=== PATIENT | male | born 1995 | race African-American/Black ===

== ENCOUNTER 2020-02-22 08:57 | Emergency (ER) | payer OTHER ==
[~2020-02-22] VITALS: Ht 177.8 cm; Wt 72.6 kg
[2020-02-22 09:16] LABS: ABSOLUTE BASOPHILS 0.1 thou/uL (0.0-0.2); ABSOLUTE EOSINOPHILS 0.1 thou/uL (0.0-0.7); ABSOLUTE LYMPHOCYTES 2.4 thou/uL (0.8-5.3); ABSOLUTE MONOCYTES 0.7 thou/uL (0.0-1.2); ABSOLUTE NEUTROPHILS 5.1 thou/uL (1.6-8.1); BASOPHILS 0.7 %; EOSINOPHILS 0.9 %; HEMATOCRIT 43.6 % (42.0-52.0); HEMOGLOBIN 14.8 gm/dL (14.0-18.0); MCH 29.5 pg (26.0-34.0); MCHC 33.9 g/dL (28.0-37.0); MCV 87.1 fL (80.0-100.0); MONOCYTES 8.4 %; MPV 8.9 fl. (7.2-11.1); NUCLEATED RBCS 0 /100WBC; PLATELET COUNT* 178 thou/uL (150-400); RBC 5.01 mil/uL (4.50-6.00); WBC 8.4 thou/uL (4.0-11.0)
[2020-02-22 09:28] LABS: CALCIUM 8.7 mg/dL (8.5-10.1); CREATININE 1.3 mg/dL (0.6-1.3); POTASSIUM 3.6 mmol/L (3.5-5.1)
[2020-02-22 09:39] LABS: MAGNESIUM 2.1 mg/dL (1.8-2.4); TOTAL BILIRUBIN 1.1 mg/dL (<0.1-1.0); TOTAL PROTEIN 7.1 g/dL (6.4-8.2)
[2020-02-22] MEDS ORDERED: ZOFRAN ODT4 MG DISSOLVE (10:17)
[2020-02-22] MEDS ORDERED: CARAFATE 1 GM TA1 G1 PO (10:17)
[2020-02-22] MEDS ORDERED: LAMISIL AT 1% C12 G1 TOP (10:17)
[2020-02-22 10:28] VITALS: BP 132/72
--- NOTE | 2020-02-24 08:55 | EKG ---
[place] [address] ELECTROCARDIOGRAM REPORT Name: GRACIEEVELINAMARICRUZ Gian Room: 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1995 Requested By: Tung Mandujano Order Number: [id number] MD: Marco Ledesma Measurements Intervals [place] Rate: 94 P: 12 [place]: 174 QRS: 58 QRSD: 88 T: 59 QT: 337 QTc: 422 Interpretive Statements Sinus rhythm ST elev, probable normal early repol pattern No previous ECG available for comparison Consider old anteroseptal myocardial infarction Electronically Signed On 02-24-2020 8:55:44 VAMP THROATER by Marco Ledesma [email or web address] <ELECTRONICALLY SIGNED> By: Steve Ledesma MD, [facility] 02/24/20 0855 1 09 Steve Ledesma MD, [facility] /EPI
== END 2020-02-22 10:29 ==
LOC: M.ERS 08:57
PROVIDERS: Emergency Medicine Emergency Medical Services
DX: R10.13 Epigastric pain (principal); R07.89 Other chest pain; B35.6 Tinea cruris; R11.2 Nausea with vomiting, unspecified

== ENCOUNTER 2020-02-22 19:47 | Emergency (ER) | payer OTHER ==
[~2020-02-22] VITALS: Ht 175.3 cm; Wt 66.7 kg
[~2020-02-22 19:47] MED LIST: CARAFATE 1 GM TA1 G1 PO; LAMISIL AT 1% C12 G1 TOP; ZOFRAN ODT4 MG DISSOLVE
[2020-02-22 21:28] VITALS: BP 135/70
--- NOTE | 2020-02-24 08:58 | EKG ---
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1995 Requested By: Angelina Cesar Order Number: [id number] Reading MD: Marco Ledesma Measurements Intervals [place] Rate: 86 P: 17 [place]: 172 QRS: 59 QRSD: 108 T: 52 QT: 343 QTc: 411 Interpretive Statements Sinus rhythm Anteroseptal infarct, old Compared to ECG 02/22/2020 09:02:54 Myocardial infarct finding now present ST (T wave) deviation no longer present Electronically Signed On 02-24-2020 8:58:43 NEGATIVE TURNER by Marco Ledesma [email or web address] <ELECTRONICALLY SIGNED> By: Steve Ledesma MD, FACC 02/24/20 [phone] 47 Steve Ledesma MD, [facility] /EPI
== END 2020-02-22 21:29 | disposition home or self-care (01) ==
LOC: M.ERS 19:47
DX: F41.9 Anxiety disorder, unspecified (principal); L29.3 Anogenital pruritus, unspecified; Z79.899 Other long term (current) drug therapy